=== PATIENT | male | born 1960 | race Caucasian/White ===

== ENCOUNTER 2021-03-17 08:46 | Outpatient (CLI) | payer MEDICARE, MEDICAID, SELFPAY | END 2021-03-17 08:47 | disposition home or self-care (01) | LOC: ANHAUDIO 08:48 | PROVIDERS: PCP Family Medicine; Visit Provider Family Medicine | DX: H90.3 Sensorineural hearing loss, bilateral (principal) | CPT/HCPCS: 92557; 92567 ==

== ENCOUNTER 2022-03-26 08:06 | Outpatient (CLI) | payer MEDICARE, MEDICAID, SELFPAY | END 2022-03-26 08:07 | disposition home or self-care (01) | LOC: ANHAUDIO 08:08 | PROVIDERS: PCP Family Medicine; Visit Provider Family Medicine | DX: H91.93 Unspecified hearing loss, bilateral (principal) | CPT/HCPCS: 92557; 92567 ==

== ENCOUNTER 2024-04-30 08:03 | Outpatient (CLI) | payer MEDICARE, MEDICAID, SELFPAY | END 2024-04-30 08:04 | disposition home or self-care (01) | PROVIDERS: PCP Family Medicine; Visit Provider Family Medicine | DX: H90.3 Sensorineural hearing loss, bilateral (principal) | CPT/HCPCS: 92557; 92567 ==

== ENCOUNTER 2025-05-14 10:42 | Outpatient (CLI) | payer MEDICARE, MEDICAID, SELFPAY ==
--- OUTSIDE RECORDS SUMMARY | 2025-05-14 10:49 | XMS_ITS | Patient Health Record ---
Author Organization [facility] Address [address] [place] [address] Care Team Providers Care Septic Tank Setter Name Role Phone JAVED MACDONALD Unavailable [phone] Tristian Stanley Unavailable Unavailable Reason For Referral No Information Medications Medication SIG (Take, Route, Frequency, Duration) Notes Start Date End Date Status Acetaminophen 325 MG Oral for -2 01/28/2020 Active SERTRALINE 100 for -2 *Reorder from [facility] for eRx and Interaction Alerts* 01/28/2020 Active PHENYLADE 60 for -2 *Reorder from [facility] for eRx and Interaction Alerts* 01/28/2020 Active L-Tyrosine for -2 *Pick strength-f orm from [facility] for eRX* 01/28/2020 Active risperiDONE for -2 *Pick strength-f orm from [facility] for eRX* 01/28/2020 Active DIVALPROEX 250 for -2 *Reorder from [facility] for eRx and Interaction Alerts* 01/28/2020 Active Colace for -2 *Pick strength-f orm from [facility] for eRX* 01/28/2020 Active Problems Problem Type SNOMED Code ICD Code Onset Dates Problem Status W/U Status Risk Notes Problem History of malignant neoplasm (155814772) Personal history of malignant neoplasm, unspecified (Z85.9) 0 Active confirmed Problem Tinea unguium (815866926) Tinea unguium (B35.1) 0 Active confirmed Problem Finding relating to psychosocial functioning (073087951) Other specified problems related to psychosocial circumstances (Z65.8) 0 Active confirmed Problem Pain in limb (60149683) Pain in left toe(s) (M79.675) 0 Active confirmed Problem Anxiety disorder (747268200) Anxiety disorder, unspecified (F41.9) 0 Active confirmed Plan Of Treatment No Information Insurance Providers Payer Name Payer Address Payer Phone Subscriber Number Group Number Insured Name Patient Relationship to Insured Coverage Start Date Coverage End Date [place] [address] [place] [address] [id number] JOANNA NORTH Self - patient is the insured [place] DEPT [place] A[place] [address] [address] [place] [address] [id number] JOANNA NORTH Self - patient is the insured
--- OUTSIDE RECORDS SUMMARY | 2025-05-14 10:49 | XMS_ITS | Clinical Summary ---
Author Organization [facility] Address [address] [place] [address] Phone Care Team Providers Care Screening Technician Name Role Phone Unavailable Primary Care Provider Unavailabl e Social History Tobacco Use Types Packs/Day Years Used Date Smoking Tobacco: Never Assessed Sex and Gender Information Value Date Recorded Sex Assigned at Not on file Legal Sex Male 10:30 AM CDT Gender Identity Not on file Sexual Orientation Not on file Plan of Treatment Health Maintenance Due Date Last Done Comments Hepatitis C Virus (HCV) Screening 1962 Colonoscopy 2007 Colorectal Cancer Screening 2007 Cologuard 2012 Immunochemical Fecal Occult Blood 2012 Pneumococcal Immunization (50+ years) (1 of 1 - PCV) 2012 Zoster Immunization (1 of 2) 2012 SARS-COV-2 Immunization ( season) 2024 11/08/2022, 10/24/2021, 12/30/2020, Additional history exists Respiratory Syncytial Virus (RSV) Immunization (Adult) (1 - 1-dose 75+ series) 2037 TdaP Immunization Completed 11/26/2019 PSA Discussion Completed 11/14/2023 Influenza Immunization Completed , 07/10/2023, 07/18/2022, Additional history exists Hepatitis B Immunization Aged Out No longer eligible based on patient's age to complete this topic Meningococcal Immunization (ACWY) Aged Out No longer eligible based on patient's age to complete this topic Pneumococcal Immunization Combined Aged Out No longer eligible based on patient's age to complete this topic Rotavirus Immunization Aged Out No lo nger eligible based on patient's age to complete this topic Procedures Procedure Name Priority Date/Time Associated Diagnosis Comments PSA SCREEN 11/14/2023 12:00 AM TICKET MACHINE OPERATOR from Last 3 Months or Most Recently Relevant to Health Maintenance Results * PSA SCREEN (11/14/2023 12:00 AM TICKET MACHINE OPERATOR) PSA SCREEN, TOTAL 0.09 SCAN 11/14/2023 us Provider Scan CHEMISTRY ORDERABLES Final Resul t SCAN from Last 3 Months or Most Recently Relevant to Health Maintenance Insurance [place]
== END 2025-05-14 10:43 | disposition home or self-care (01) ==
LOC: ANHAUDIO 10:42
PROVIDERS: PCP Family Medicine; Visit Provider Family Medicine
DX: H91.93 Unspecified hearing loss, bilateral (principal)
CPT/HCPCS: 92557; 92567